=== PATIENT | male | born 1980 | race American Indian/Alaskan Native ===

== ENCOUNTER 2019-11-24 14:09 | Outpatient (CLI) | payer BC ==
--- NOTE | 2019-11-24 14:56 | XRay Report ---
Right hip, 3 views INDICATION: Chronic right hip pain FINDINGS: The joint space is maintained. There is no fracture or dislocation. No spurring or arthriti c change. No bone lesion or periostitis. No significant abnormality. IMPRESSION: Negative study Signer Name: Shaheen Tirado MD Signed: 11/24/2019 2:51 PM Workstation Name: [id number]
== END 2019-11-24 14:10 | disposition home or self-care (01) ==
LOC: SPVIMAG 14:09
PROVIDERS: ATTEND Internal Medicine
DX: M25.551 Pain in right hip (principal)